=== PATIENT | male | born 1950 | race Caucasian/White ===

== ENCOUNTER 2017-03-24 15:20 | Emergency (ER) | payer OTHER, MEDICARE ==
[~2017-03-24] VITALS: Ht 185.4 cm; Wt 92.1 kg
[2017-03-24 16:14] LABS: ABSOLUTE NEUTROPHILS 6.5 thou/uL (1.4-8.2); BASOPHILS 0.8 % (0.0-2.0); EOSINOPHILS 2.8 % (0.0-3.0); HEMATOCRIT 37.7 % (42.0-52.0); HEMOGLOBIN 12.9 gm/dL (14.0-18.0); LYMPHOCYTES 13.4 % (24.0-44.0); MCH 28.5 pg (26.0-34.0); MCHC 34.2 g/dL (28.0-37.0); MCV 83.3 fL (80.0-100.0); MONOCYTES 7.4 % (1.0-8.0); PLATELET COUNT 359 thou/uL (150-400); POLYS 75.6 % (36.0-66.0); RBC 4.53 mil/uL (4.50-6.00); RDW 14.5 % (10.5-14.5); WBC 8.6 thou/uL (4.0-11.0)
[2017-03-24 16:15] LABS: MANUAL DIFF NO
[2017-03-24 16:20] LABS: CALCIUM 8.5 mg/dL (8.5-10.1); CREATININE 1.3 mg/dL (0.7-1.3)
[2017-03-24] MEDS ORDERED: IBUPROFEN 800800 M1 PO (17:10)
[2017-03-24] MEDS ORDERED: POLYMYXIN B/TMP10 ML OP (17:10)
[2017-03-24] MEDS ORDERED: CLEOCIN HCL150 MG PO (17:10)
[2017-03-24 17:45] VITALS: BP 136/96
== END 2017-03-24 17:46 | disposition home or self-care (01) ==
LOC: ER 15:20
PROVIDERS: Nurse Practitioner Family
DX: S05.02XA Injury of conjunctiva and corneal abrasion without foreign body, left eye, initial encounter (principal); L03.213 Periorbital cellulitis; Z90.49 Acquired absence of other specified parts of digestive tract; Z91.040 Latex allergy status; X58.XXXA Exposure to other specified factors, initial encounter; Y93.89 Activity, other specified; Y92.89 Other specified places as the place of occurrence of the external cause; Y99.8 Other external cause status

== ENCOUNTER 2017-03-26 06:02 | Emergency (ER) | payer OTHER, MEDICARE ==
[~2017-03-26] VITALS: Ht 185.4 cm; Wt 92.1 kg
[~2017-03-26 06:02] MED LIST: CLEOCIN HCL150 MG PO; IBUPROFEN 800800 M1 PO; POLYMYXIN B/TMP10 ML OP
[2017-03-26 08:42] VITALS: BP 163/94
== END 2017-03-26 08:43 | disposition home or self-care (01) ==
LOC: ER 06:02
DX: H57.12 Ocular pain, left eye (principal); Z90.49 Acquired absence of other specified parts of digestive tract; Z91.040 Latex allergy status

== ENCOUNTER 2019-07-16 06:48 | Inpatient (IN) | payer OTHER, MEDICARE ==
[2019-07-07 09:06] LABS: HEMATOCRIT 41.4 % (42.0-52.0); MCH 27.4 pg (26.0-34.0); MCHC 33.8 g/dL (28.0-37.0); RBC 5.11 mil/uL (4.50-6.00); RDW 15.6 % (10.5-14.5); WBC 8.2 thou/uL (4.0-11.0)
[2019-07-07 09:11] LABS: ALBUMIN 3.7 g/dL (3.4-5.0); CALCIUM 9.7 mg/dL (8.5-10.1); CREATININE 1.2 mg/dL (0.7-1.3); POTASSIUM 4.3 mmol/L (3.5-5.1)
[2019-07-07 09:18] LABS: PROTIME 9.6 Seconds (9.3-11.4)
[2019-07-07 09:20] LABS: URINE BILIRUBIN NEGATIVE (Negative); URINE BLOOD NEGATIVE (Negative); URINE CLARITY CLEAR; URINE COLOR YELLOW; URINE GLUCOSE-RANDOM* NEGATIVE (Negative); URINE KETONES NEGATIVE (Negative); URINE LEUKOCYTES-REFLEX NEGATIVE (Negative); URINE NITRITE-REFLEX NEGATIVE (Negative); URINE PROTEIN (DIPSTICK) NEGATIVE (Negative); URINE SPECIFIC GRAVITY 1.025 (1.005-1.035); URINE UROBILINOGEN 0.2 E.U./dl (0.2-1.0)
--- NOTE | 2019-07-08 17:19 | EKG ---
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
[~2019-07-16] VITALS: Ht 185.4 cm; Wt 91.6 kg
--- NOTE | ~2019-07-16 | O ---
[facility] [place] [address] OPERATIVE REPORT Name: JABARI LINDO Room #: 150-4 ADM IN M.R.#: [id number] Admission: 07/16/19 Attend Phys: Nba Brooks MD Discharge: Date of : 52 Report #: [id number] THIS REPORT FOR: //name// CC: Nba Vázquez DATE OF SERVICE: 07/16/2019 PREOPERATIVE DIAGNOSIS: Left knee medial compartment osteoarthritis. POSTOPERATIVE DIAGNOSES: Left knee medial compartment osteoarthritis. PROCEDURE: Left unicompartmental knee arthroplasty using Navio robotic assistance. SURGEON: Nab Brooks MD. VENTILATING ENGINEER: Precious Rodriguez PA-C. INDICATIONS FOR VENTILATING ENGINEER: Throughout the case, extensive retraction and manipulation of the knee was required. This was afforded to me by my delivery assistant. ANESTHESIA: LMA with an adductor canal block. IMPLANTS: Keane and Nephew size 5 Journey Oxinium medial femoral component, a size 3 tibia and a size 9 polyethylene. TOURNIQUET TIME: 51 minutes. ESTIMATED BLOOD LOSS: 25 mL. COMPLICATIONS: None. SPECIMENS: None. CONDITION UPON LEAVING THE OPERATING ROOM: Stable. INDICATIONS FOR PROCEDURE: The patient is a 69-year-old gentleman with left knee medial compartment osteoarthritis. He had failed conservative measures for this and after discussion with him, he elected for left unicompartmental knee arthroplasty. DESCRIPTION OF PROCEDURE: Risks, benefits, alternatives, complications were discussed in detail with the patient including but not limited to risk of anesthesia, risk of damage to nerves, arteries, blood vessels, risk for infection, bleeding, risk for continued knee pain, need for reoperation. [facility] [address] [place] [address] OPERATIVE REPORT Name: JABARI LINDO Room #: 150-4 ADM IN M.R.#: [id number] Admission: 07/16/19 Attend Phys: Nba Brooks MD Discharge: Date of : 52 Report #: [id number] Informed consent was obtained from the patient. Left knee was appropriately marked in the preoperative holding area. IV Ancef was given for preoperative antibiotics. Adductor canal block was placed by anesthesia. He was brought to the operating room and placed in supine position on operating room table. LMA anesthesia was induced without complication. Tourniquet was placed on the left thigh. Left lower extremity was prepped and draped in normal sterile fashion. Timeout was performed properly identifying the patient and procedure as well as the instrumentation. All in the operating room were in agreement. Left lower extremity was exsanguinated, tourniquet was inflated. Tourniquet time was 51 minutes. Standard approach to the medial knee was made with 10 blade through the skin. Dissection was taken down sharply to the fascia and deep flaps were developed medially and laterally. Fresh 10 blade was used to make a medial parapatellar arthrotomy and the knee was inspected. There was severe medial compartment osteoarthritis. Lateral compartment was well maintained. 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 It was decided to proceed with unicompartmental knee arthroplasty. Reference pins were placed in the femur and the tibia and the knee was digitally mapped using the Source Audio robotic system. We sized a size 5 femur and a size 3 tibia with a 9 spacer. After acceptance of the intraoperative plan, the distal femoral cut and the tibial cuts were made with a Navio bur. We sized the tibia and was sized as a size 3, A size 3 tibial trial was pinned and drilled. A size 5 femoral trial was placed. This was then trialed with a size 9 polyethylene. Knee was taken through range of motion, found to have a mm laxity medially throughout range of motion with good balance. After this, trial components were removed. Bony ends were thoroughly irrigated with normal saline. Final size 3 tibia and a size 5 Journey Oxinium medial compartment knee arthroplasty were cemented in place using standard cementation techniques. While the cement cured, a periarticular injection consisting of morphine, ropivacaine, epinephrine, Toradol were placed around the knee joint capsule. After the cement cured, the tourniquet was deflated. Hemostasis was obtained with Bovie cautery. A final size 9 polyethylene was placed. A gram of vancomycin was placed deep in the joint. Fascia was closed with 0 Vicryl, skin was closed with 2-0 Vicryl, 3-0 Monocryl. Dermabond and a [place] dressing was applied. The patient tolerated this procedure well and went to recovery room under care of anesthesia postoperatively. By: 1416 1429 Nba Brooks MD /nt
[~2019-07-16 06:48] MED LIST changes: +EXCEDRIN TENSION PO; +FLOMAX0.4 MG PO; +IBUPROFEN 200200 M1 PO; +OMEPRAZOLE 20 M20 M1 PO; +TYLENOL EXTRA500 MG PO
[2019-07-16 12:15] VITALS: BP 142/89
--- NOTE | 2019-07-16 15:54 | NUR ---
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 CM TO FOLLOW INDICATED WITH DC PLANNING.
[2019-07-16 16:00] VITALS: BP 135/84
[2019-07-16 16:15] VITALS: BP 129/83
--- NOTE | 2019-07-16 16:22 | NUR ---
PT ADMITTED RELATED TO LEFT KNEE OA. CM REVIEWED CHART AND [facility] CARE TEAM. CM MET WITH PT AT BEDSIDE THIS DAY. PT IS A&O X4. CM ROLE INTRODUCED. PT INDICATED HE LIVES ALONE IN AN APARTMENT WITH NO STEPS AT ALL. 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 CM INDICATED THAT THERAPY MIGHT RECOMMEND THAT HE HAVE A STANDARD FWW ISSUED UPON DC. PT INDICATED HE IS ESTABLISHED WITH AN OP PT APPOINTMET AT [facility] ON SUNDAY. PLEASE DISRECARD PREVIOUS NOTE PT HADN'T BEEN ON SERVICE WITH [facility]BRICK [facility]. PT PLANS TO RETURN HOME ONCE MEDICALLY STABLE.
[2019-07-16 16:30] VITALS: BP 129/78
--- NOTE | 2019-07-16 18:46 | NUR ---
PT ADMITTED TO ROOM 463. ARRIVED AT 1600 DR PÉREZ'S PATIENT. HAD LEFT KNEE. [place] DRSG IN PLACE. ICE BAG IN PLACE. REGULAR DIET. IV FLUIDS INFUSING ORDERED. PT ALERT XS 4 NO PAIN OR RESP DISTRESS. PT PLEASANT AND COOPERATIVE WITH CARE. V.S TAKEN AND IN CHART. LUNGS CTA BSXS 4 STATES BM 07/15/19.
[2019-07-16 19:47] VITALS: BP 127/77
[2019-07-16 23:40] VITALS: BP 128/78
--- NOTE | 2019-07-17 04:19 | NUR ---
ASSUMED CARE OF PT @1900. PT A&OX4. PT ABLE TO MOVE L LEG WITH MODERATE PAIN. DRESSING TO LEFT KNEE; CLEAN, DRY AND INTACT. [place] DRESSING IN PLACE. PAIN MED GIVING PER EMAR. 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 CALL JAIMES WITHIN REACH. FALL PREC WITHIN REACH
[2019-07-17 05:04] VITALS: BP 114/60
[2019-07-17 06:05] LABS: HEMATOCRIT 33.3 % (42.0-52.0); HEMOGLOBIN 11.2 gm/dL (14.0-18.0); MCH 27.6 pg (26.0-34.0); MCHC 33.7 g/dL (28.0-37.0); RBC 4.06 mil/uL (4.50-6.00); RDW 15.5 % (10.5-14.5); WBC 11.5 thou/uL (4.0-11.0)
[2019-07-17 07:54] VITALS: BP 112/71
[2019-07-17] MEDS ORDERED: ASPIR 8181 MG PO (12:46)
[2019-07-17] MEDS ORDERED: MS CONTIN15 MG PO (12:47)
[2019-07-17] MEDS ORDERED: NEURONTIN 300300 M1 PO (12:47)
[2019-07-17] MEDS ORDERED: PERCOCET PO (12:48)
--- NOTE | 2019-07-17 13:03 | NUR ---
Ordered walker from [facility] to be delivered later today. No other needs identified. Pt has outpatient PT arranged beginning on 07/18/19.
[2019-07-17 14:42] VITALS: BP 112/71
--- NOTE | 2019-07-17 14:58 | NUR ---
Assumed care of pt at 0700. Pt alert and oriented x4. Pain controlled with prn pain meds. Worked with physical therapy. Doing very well post-op. Dressing clean and intact. Call light within reach. Will discharge to home this afternoon.
== END 2019-07-17 16:53 | disposition home or self-care (01) | DRG 470 ==
LOC: PRE 06:48 → 4W 10:31 → TBA 10:31 → 4W 15:51 → ENTRNSPT 07-17 16:30 → EDTRNSPT 07-17 16:40 → 4W 07-17 16:53
PROVIDERS: ADMIT Orthopaedic Surgery
DX: M17.12 Unilateral primary osteoarthritis, left knee (principal); Z91.040 Latex allergy status
CPT/HCPCS: 10047; 50010; 50101; 50415; 50954; 51130; 51225; 53078; 53370; 54118; 56527; 56528; 57095; 57103; 57110; 57127; 57180; 62110; 62900; 70005

== ENCOUNTER → 2020-05-31 | Outpatient (CLI) | payer OTHER ==
[~2020-05-31] MED LIST changes: +ASPIR 8181 MG PO; +MS CONTIN15 MG PO; +NEURONTIN 300300 M1 PO; +PERCOCET PO
== END ==
LOC: CAT 12:06
PROVIDERS: ATTEND Neuromusculoskeletal Medicine & OMM
DX: Z13.6 Encounter for screening for cardiovascular disorders (principal); I25.10 Atherosclerotic heart disease of native coronary artery without angina pectoris; E78.00 Pure hypercholesterolemia, unspecified

== ENCOUNTER → 2020-06-02 | Outpatient (CLI) | payer OTHER, MEDICARE ==
[~2020-06-02] MED LIST changes: +LIPITOR 20 MG T20 M1 PO
== END ==
LOC: SJCVC 10:53
PROVIDERS: ATTEND Internal Medicine
DX: I25.118 Atherosclerotic heart disease of native coronary artery with other forms of angina pectoris (principal); E78.5 Hyperlipidemia, unspecified; I10 Essential (primary) hypertension; Z79.899 Other long term (current) drug therapy; Z87.891 Personal history of nicotine dependence

== ENCOUNTER 2020-06-03 14:58 | Inpatient (IN) | payer OTHER, MEDICARE ==
[~2020-06-03] VITALS: Ht 182.9 cm; Wt 93.9 kg
[~2020-06-03 14:58] MED LIST changes: -LIPITOR 20 MG T20 M1 PO
[2020-06-03 14:59] VITALS: BP 152/93
[2020-06-03] MEDS ORDERED: LIPITOR 20 MG T20 M1 PO ×2 (15:11)
[2020-06-03 15:53] LABS: ABSOLUTE NEUTROPHILS 6.5 thou/uL (1.4-8.2); BASOPHILS 0.8 % (0.0-2.0); EOSINOPHILS 1.3 % (0.0-3.0); HEMATOCRIT 38.9 % (42.0-52.0); HEMOGLOBIN 13.5 gm/dL (14.0-18.0); LYMPHOCYTES 8.9 % (24.0-44.0); MCH 28.7 pg (26.0-34.0); MCHC 34.8 g/dL (28.0-37.0); MCV 82.4 fL (80.0-100.0); MONOCYTES 8.2 % (1.0-8.0); PLATELET COUNT 401 thou/uL (150-400); POLYS 80.8 % (36.0-66.0); RBC 4.72 mil/uL (4.50-6.00); RDW 16.1 % (10.5-14.5); WBC 8.1 thou/uL (4.0-11.0)
[2020-06-03 16:01] LABS: ANION GAP 7 mmol/L (7-16); BUN 20 mg/dL (7-18); CALCIUM 9.3 mg/dL (8.5-10.1); CHLORIDE 100 mmol/L (98-107); CO2 26 mmol/L (21-32); CREATININE 1.2 mg/dL (0.7-1.3); GLUCOSE 98 mg/dL (74-106); POTASSIUM 3.9 mmol/L (3.5-5.1); SODIUM 133 mmol/L (136-145)
[2020-06-03 16:11] LABS: ALBUMIN 3.4 g/dL (3.4-5.0); SGOT 22 U/L (15-37); SGPT 45 U/L (30-65); TOTAL BILIRUBIN 0.4 mg/dL (0.2-1.0); TOTAL PROTEIN 7.7 g/dL (6.4-8.2); TROPONIN-I <0.06 ng/mL (<0.06)
[2020-06-03 16:19] VITALS: BP 128/89
[2020-06-03 16:23] LABS: APTT 25.9 Seconds (24.5-32.8); PROTIME 9.5 Seconds (9.3-11.4)
[2020-06-03 17:04] VITALS: BP 128/89
[2020-06-03 17:40] VITALS: BP 135/93
[2020-06-03 19:28] VITALS: BP 145/87
[2020-06-04] VITALS (15 sets, daily range): BP systolic 129–154; BP diastolic 60–102
--- NOTE | 2020-06-04 02:20 | NUR ---
0115 DR CASIANO CALLED DUE TO ELEVATING BP 154/102, INFORMED PATIENT HAD BURST OF ST VS AFIB BUT CONVERTED BACK TO SR. ORDERS FOR NORVASC TO BE GIVEN AND STATED WASNT WORRIED ABOUT ST. 0138 NORVASC GIVEN.
--- NOTE | 2020-06-04 07:40 | NUR ---
SLEPT MOST OF SHIFT. TYLENOL GIVEN FOR HEADACHE THIS AM. NPO PAST MIDNIGHT FOR AM CATH. NO FURTHER ST LAST NOC. STATES HAS PAIN IN RIGHT SHOULDER BUT COMES AND GOES QUICKLY AND GONE BEFORE CAN CALL. WORKING ON GOALS AND PLAN OF CARE FOR NOC. DANGLES TO VOID. BP 129/91 PAST NORVASC. CONTINUE TO ASSES CLOSELY.
--- NOTE | 2020-06-04 09:42 | NUR ---
PT OFF UNIT TO [facility]
--- NOTE | 2020-06-04 10:55 | NUR ---
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 WILL CONTINUE TO ASSESS.
--- NOTE | 2020-06-04 13:34 | NUR ---
Chart reviewed and discussed with the care team. Cardiac cath today. Pt is from home and was indep prior to admission. From his previous hx, he has a FWW if needed and is familiar with outpt therapy. Pt's pcp is Dr. Vázquez. He has health ins in place for f/u care. Bridge consult done in error. No cm interventions indicated at this time. Will remain available should needs arise. Home soon.
[2020-06-04] MEDS ORDERED: OMEPRAZOLE 20 M20 M1 PO ×2 (14:48)
--- NOTE | 2020-06-04 15:49 | NUR ---
IV AND TELE DISCONTINUED. PT UNDERSTANDS ALL FOLLOW UP ORDERS, WILL DISCHARGE TO HOME VIA PRIVATE VEHICLE.
--- NOTE | 2020-06-04 16:12 | EKG ---
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
--- NOTE | 2020-06-04 16:24 | EKG ---
[facility] [place] [address] ELECTROCARDIOGRAM REPORT Name: JABARI LINDO Room #: 201- DIS IN M.R.#: [id number] Admission: 06/03/20 Attend Phys: Devon Hernandez MD Discharge: 06/04/20 Date of : 52 Report #: [id number] THIS REPORT FOR: cc: Bunny Vázquez,Jaxson Cruz MD [facility] ~ THIS REPORT FOR: //name// [facility] Test Date: 2020-06-04 Test Time: 07:20:52 Pat Name: JABARI LINDO Department: Room: 201 P Gender: M [employer] Business Development: Higinio MANSFIELD : 1950 Requested By: Devon Hernandez Order Number: [id number] MD: Jaxson Malone Measurements Intervals [place] Rate: 76 P: 50 WA: 153 QRS: 34 QRSD: 100 T: 10 QT: 391 QTc: 440 Interpretive Statements Sinus rhythm Normal tracing Compared to ECG 06/03/2020 15:13:35 No significant changes Electronically Signed On 06-04-2020 16:24:39 CDT by Jaxson Malone [email or web address] <ELECTRONICALLY SIGNED> By: Jaxson Malone MD, [facility] 06/04/20 1624 9 9 Jaxson Malone MD, [facility] /EPI
--- NOTE | 2020-06-18 01:17 | CATHLAB ---
[facility] [place] [address] INVASIVE PROCEDURE REPORT Name: JABARI LINDO Room #: 201-P DIS IN M.R.#: [id number] Admission: 06/03/20 Attend Phys: Devon Hernandez MD Discharge: 06/04/20 Date of : 52 Report #: [id number] THIS REPORT FOR: cc: Bunny Vázquez Steven F. DO Lammoglia, Francisco J. MD ~ APPROVED REPORT Study performed: 06/04/2020 09:41:07 Patient Details Patient Status: In-Patient Room #: The patient is a 70 year-old male Event Personnel Tyron Galloway Manager Emergency Department, Lorenzo Hillman RN, Bryanna Gomez RTR Scrub, Malgorzata Reagan RTR Monitor Procedures Performed Art Access - R femoral artery* Left Heart Cath w/or w/o Coronaries [id number] [facility] [address] Initial Mod Sed Same Phys/QHP [facility] [id number] 55552 Mod Sed Same Phys/QHP Ea [id number] Hemostasis with Manual, supervision of conscious sedationpressure Indication Positive stress test, Chest pain Procedure Narrative The Right Groin^ was infiltrated with 1% Lidocaine subcutaneous anesthesia. A PINNACLE 4FR Sheath #[id number] sheath was inserted into the RFA^. Coronary angiography was performed using coronary diagnostic catheters. The right coronary system was accessed and visualized with a JR4 catheter. The left coronary system was accessed and visualized with a JL4 catheter. Hemostasis was obtained with manual pressure following sheath removal without any complications. The patient tolerated the procedure well and there were no complications associated with the procedure. There was no hematoma. Intraoperative Conscious Sedation Sedation start time: 10:07 Case end Time: 10:35 Versed 2 mg [facility] [place] [address] INVASIVE PROCEDURE REPORT Name: GUICHOJABARI SE Room #: 201-P [facility] IN ..#: [id number] Admission: 06/03/20 Attend Phys: Devon Hernandez MD Discharge: 06/04/20 Date of : 52 Report #: [id number] Fluoro Time: 2.17 minutes Dose: DAP 2833.80 cGycm2 385 mGy Contrast Type and Amount: Omnipaque 80 ml Coronary Angiography The patient's coronary anatomy is right dominant. Diagnostic Cath Left Main large caliber long legnth vessel of normal origin that bifurcates into LAD and LCx vessel. It is free of significant plaquing LAD moderate to large caliber type III vesel coursing in the anterior interventricular sulcus giving rise to diagonal and septal branches. there is evidence of extensive epicardial calcifications under flouroscopy. no high grade lesions. it has a very tortuous mid and distal segment Diagonal 1 small caliber vessel without significant lesions Diagonal 2 insignificant size vessel Circumflex Moderate to large caliber vessel with luminal irregularities of 30-40%. it gives vick to three marginal the last of which is a posterior wall vessel. intraluminal irregularies are present which are not flow limiting OM1 small to moderate caliber vessel OM2 small caliber lateral wall marginal branch with moderate irregularities OM3 small caliber posterior wall vessel, no high grade lesions Right Coronary Large caliber dominant veseel with mild plaquing identified. aat the crux of the heart it gives ris to pda and two posterior wall vessels R PDA small caliber nonobstructive vessel Left Ventriculography Left Ventriculography was not performed. Hemodynamics The aortic pressure is 147/76 mmHg with a mean of 110 mmHg. The left ventricular pressure is 150/50 mmHg with a mean of mmHg. The left ventricular end diastolic pressure is 62 mmHg. Conclusion 1. Coronary artery disease three vessel mild to moderate 2. Normal hemodynamics Recommendations Cardiac Risk Reduction Program [facility] [address] [place] [address] INVASIVE PROCEDURE REPORT Name: CHRISROSANGELAJABARIEST Room #: 201-P DIS IN M.R.#: [id number] Admission: 06/03/20 Attend Phys: Devon Hernandez MD Discharge: 06/04/20 Date of : 52 Report #: [id number] [facility] Medical Therapy <ELECTRONICALLY SIGNED> By: Tyron Galloway MD 06/18/20 0116 5 0116 Tyron Galloway MD /LINDA
== END 2020-06-04 16:17 | disposition home or self-care (01) | DRG 286 ==
LOC: ER 14:58 → 2N 16:36 → EROBS 16:36 → 2N 17:04
PROVIDERS: Emergency Medicine; ADMIT Internal Medicine; ATTEND Internal Medicine
PROC: 4A023N7 Measurement of Cardiac Sampling and Pressure, Left Heart, Percutaneous Approach (ICD-10-PCS; principal; 2020-06-04)
PROC: B2111ZZ Fluoroscopy of Multiple Coronary Arteries using Low Osmolar Contrast (ICD-10-PCS; principal; 2020-06-04)
DX: I25.10 Atherosclerotic heart disease of native coronary artery without angina pectoris (principal); I50.33 Acute on chronic diastolic (congestive) heart failure; I31.1 Chronic constrictive pericarditis; R07.89 Other chest pain; K21.9 Gastro-esophageal reflux disease without esophagitis; Z08 Encounter for follow-up examination after completed treatment for malignant neoplasm; N40.0 Benign prostatic hyperplasia without lower urinary tract symptoms; Z85.46 Personal history of malignant neoplasm of prostate; Z90.49 Acquired absence of other specified parts of digestive tract; Z98.52 Vasectomy status; Z91.040 Latex allergy status; Z87.891 Personal history of nicotine dependence; Z79.82 Long term (current) use of aspirin; Z79.899 Other long term (current) drug therapy; Z20.828 Contact with and (suspected) exposure to other viral communicable diseases
CPT/HCPCS: 10081

== ENCOUNTER → 2020-06-18 | Outpatient (CLI) | payer OTHER, MEDICARE ==
[~2020-06-18] MED LIST changes: +LIPITOR 20 MG T20 M1 PO
== END ==
LOC: SJCVC 10:17
PROVIDERS: ATTEND Internal Medicine
DX: I25.118 Atherosclerotic heart disease of native coronary artery with other forms of angina pectoris (principal); I10 Essential (primary) hypertension; E78.5 Hyperlipidemia, unspecified; N52.1 Erectile dysfunction due to diseases classified elsewhere; M19.90 Unspecified osteoarthritis, unspecified site; E78.00 Pure hypercholesterolemia, unspecified; Z82.49 Family history of ischemic heart disease and other diseases of the circulatory system; Z79.82 Long term (current) use of aspirin; Z79.899 Other long term (current) drug therapy; Z87.891 Personal history of nicotine dependence

== ENCOUNTER → 2021-06-20 | Outpatient (CLI) | payer OTHER, MEDICARE | LOC: SJCVC 08:57 | PROVIDERS: ATTEND Internal Medicine | DX: I25.10 Atherosclerotic heart disease of native coronary artery without angina pectoris (principal); E78.5 Hyperlipidemia, unspecified; I10 Essential (primary) hypertension; M19.90 Unspecified osteoarthritis, unspecified site; K21.9 Gastro-esophageal reflux disease without esophagitis; E78.00 Pure hypercholesterolemia, unspecified; Z90.49 Acquired absence of other specified parts of digestive tract; Z88.8 Allergy status to other drugs, medicaments and biological substances; Z79.82 Long term (current) use of aspirin; Z79.899 Other long term (current) drug therapy; Z87.891 Personal history of nicotine dependence; Z82.49 Family history of ischemic heart disease and other diseases of the circulatory system ==

== ENCOUNTER → 2021-12-16 | Outpatient (CLI) | payer OTHER, MEDICARE ==
[~2021-12-16] MED LIST changes: +IMDUR 30 MG TAB30 M1 PO; +NORVASC 2.5 MG2.5 M1 PO
[2021-12-16 11:21] LABS: HEMATOCRIT 39.4 % (42.0-52.0); HEMOGLOBIN 13.1 gm/dL (14.0-18.0); MCH 27.6 pg (26.0-34.0); MCHC 33.3 g/dL (28.0-37.0); MCV 82.7 fL (80.0-100.0); RBC 4.76 mil/uL (4.50-6.00); RDW 15.3 % (10.5-14.5); URINE BILIRUBIN NEGATIVE (Negative); URINE BLOOD NEGATIVE (Negative); URINE CLARITY CLEAR; URINE COLOR YELLOW; URINE GLUCOSE-RANDOM* NEGATIVE (Negative); URINE KETONES NEGATIVE (Negative); URINE LEUKOCYTES-REFLEX NEGATIVE (Negative); URINE NITRITE-REFLEX NEGATIVE (Negative); URINE PROTEIN (DIPSTICK) NEGATIVE (Negative); URINE SPECIFIC GRAVITY 1.015 (1.005-1.035); URINE UROBILINOGEN 0.2 E.U./dl (0.2-1.0); WBC 7.5 thou/uL (4.0-11.0)
[2021-12-16 11:30] LABS: ALBUMIN 3.8 g/dL (3.4-5.0); CALCIUM 9.7 mg/dL (8.5-10.1); CREATININE 1.1 mg/dL (0.7-1.3)
[2021-12-16 11:33] LABS: INR 0.94; PROTIME 10.3 Seconds (10.5-12.1)
== END ==
LOC: PAC 10:23
PROVIDERS: ATTEND Orthopaedic Surgery
DX: M17.11 Unilateral primary osteoarthritis, right knee (principal); I10 Essential (primary) hypertension

== ENCOUNTER → 2021-12-22 | Outpatient (CLI) | payer OTHER, MEDICARE | LOC: SJCVC 14:35 | PROVIDERS: ATTEND Internal Medicine | DX: I25.10 Atherosclerotic heart disease of native coronary artery without angina pectoris (principal); R07.9 Chest pain, unspecified; I10 Essential (primary) hypertension; E78.5 Hyperlipidemia, unspecified; E78.00 Pure hypercholesterolemia, unspecified; C67.9 Malignant neoplasm of bladder, unspecified; C61 Malignant neoplasm of prostate; Z79.82 Long term (current) use of aspirin; Z79.899 Other long term (current) drug therapy; Z88.8 Allergy status to other drugs, medicaments and biological substances; Z90.49 Acquired absence of other specified parts of digestive tract; Z98.890 Other specified postprocedural states ==

== ENCOUNTER → 2022-01-09 | Outpatient (CLI) | payer OTHER, MEDICARE | LOC: SJCVCIMAG 12-30 11:22 | PROVIDERS: ATTEND Internal Medicine | DX: I08.1 Rheumatic disorders of both mitral and tricuspid valves (principal); I10 Essential (primary) hypertension; R07.9 Chest pain, unspecified; I25.10 Atherosclerotic heart disease of native coronary artery without angina pectoris; M15.9 Polyosteoarthritis, unspecified; Z01.810 Encounter for preprocedural cardiovascular examination; Z98.890 Other specified postprocedural states; Z87.891 Personal history of nicotine dependence; E78.00 Pure hypercholesterolemia, unspecified; Z88.8 Allergy status to other drugs, medicaments and biological substances ==